=== PATIENT | male | born 2000 | race African-American/Black ===

== ENCOUNTER 2018-06-14 14:37 | Emergency (ER) | payer MEDICAID, OTHER ==
[~2018-06-14] VITALS: Ht 175.3 cm; Wt 70.0 kg
[2018-06-14] MEDS ORDERED: KETOROLAC 60MG/2ML VIAL IM ONE (19:30)
[2018-06-14 20:04] VITALS: BP 112/55
== END 2018-06-14 21:00 | disposition home or self-care (01) ==
LOC: ER 17:00
DX: M79.671 Pain in right foot (principal); M25.512 Pain in left shoulder; J45.909 Unspecified asthma, uncomplicated; V03.10XA Pedestrian on foot injured in collision with car, pick-up truck or van in traffic accident, initial encounter; Y93.89 Activity, other specified; Y92.488 Other paved roadways as the place of occurrence of the external cause
CPT/HCPCS: 73630; 96372; 99283; J1885